=== PATIENT | female | born 1990 | race African-American/Black ===

== ENCOUNTER 2016-12-28 20:56 | Emergency (ER) | payer OTHER ==
[~2016-12-28] VITALS: Ht 167.6 cm; Wt 94.3 kg
[2016-12-28] MEDS ORDERED: IV NORMAL SALINE 1000ML BAG 1,000 ML IV ONE (21:30)
[2016-12-28] MEDS ORDERED: METOCLOPRAMIDE HCL 10 MG/2 ML VIAL. IV ONE (21:30)
[2016-12-28 21:38] LABS: BASO % 0 % (0-3); EOS % 0 % (0-3); HEMATOCRIT 31.5 % (36.0-47.0); HEMOGLOBIN 10.3 g/dL (12.0-15.5); LYMPH # 0.8 x10^3/uL (1.0-4.8); LYMPH % 8 % (24-48); MEAN CORPUSCULAR HEMOGLOBIN 26 pg (25-35); MEAN CORPUSCULAR HGB CONC 33 g/dL (31-37); MEAN CORPUSCULAR VOLUME 79 fL (79-100); MONO % 4 % (0-9); NEUT % 88 % (31-73); PLATELET COUNT 265 x10^3/uL (140-400); RED BLOOD COUNT 3.98 x10^6/uL (3.50-5.40); WHITE BLOOD COUNT 10.6 x10^3/uL (4.0-11.0)
[2016-12-28 21:40] LABS: BILIRUBIN,URINE NEGATIVE (NEG); GLUCOSE,URINE NEGATIVE (NEG); NITRITE,URINE NEGATIVE (NEG); PROTEIN,URINE NEGATIVE (NEG-TRACE); UROBILINOGEN,URINE 0.2 mg/dL (0.2 mg/dL)
[2016-12-28 21:46] LABS: CALCIUM 8.7 mg/dL (8.5-10.1); CREATININE 0.7 mg/dL (0.6-1.0); GFR 124.4; POTASSIUM 3.4 mmol/L (3.5-5.1)
[2016-12-28 21:51] LABS: ALBUMIN 3.5 g/dL (3.4-5.0); TOTAL BILIRUBIN 0.4 mg/dL (0.2-1.0); TOTAL PROTEIN 7.1 g/dL (6.4-8.2)
[2016-12-28 21:55] LABS: BACTERIA,URINE FEW /HPF (0-FEW); RBC,URINE 0 /HPF (0-2); SQUAMOUS EPITHELIAL CELL,UR FEW /LPF
[2016-12-28 22:13] LABS: PLT ESTIMATE ADEQUATE (ADEQUATE)
[2016-12-28 22:36] VITALS: BP 121/68
[2016-12-28] MEDS ORDERED: METO10TA81 PO (22:36)
--- NOTE | 2016-12-28 22:36 | PHYS DOC ---
Past Medical History Past Medical History: No Pertinent History Past Surgical History: Other Additional Past Surgical Histo: LEFT ANKLE Alcohol Use: None Drug Use: None Adult General Chief Complaint Chief Complaint: NAUSEA/VOMITING/DIARRHA HPI HPI Patient is a 26 year old female who presents with nausea & vomiting in . The patient states she is about 7 weeks by dates, has not yet established care with Dr. Rolon but has an appointment scheduled. She has had mild nausea for the past few weeks, today vomited at least 5 times & not tolerating oral intake. She denies fevers/chills, abdominal pain, hematemesis, diarrhea, constipation, dysuria/hematuria, vaginal bleeding/discharge. She was recently exposed to her nephews who had gastroenteritis. She is . Review of Systems Review of Systems Constitutional: Denies fever or chills HENT: Denies nasal congestion or sore throat Respiratory: Denies cough or shortness of breath Cardiovascular: Denies chest pain GI: Reports nausea/vomiting, denies abdominal pain, or diarrhea : Denies dysuria or hematuria Musculoskeletal: Denies back pain or joint pain Integument: Denies rash Neurologic: Denies headache Current Medications Current Medications Current Medications Medications (Trade) Dose Ordered Sig/Damir Start Time Stop Time Status Last Admin Dose Admin Metoclopramide HCl (Reglan) 10 mg 1X ONCE 12/28/16 21:30 12/28/16 21:31 DC 12/28/16 21:29 10 MG Potassium Chloride (Klor-Con) 40 meq 1X ONCE 12/28/16 22:45 12/28/16 22:46 DC 12/28/16 22:49 40 MEQ Sodium Chloride 1,000 ml @ 1,000 mls/hr 1X ONCE 12/28/16 21:30 12/28/16 22:29 DC 12/28/16 21:28 1,000 MLS/HR Allergies Allergies Allergies Coded Allergies Type Severity Reaction Last Updated Verified No Known Drug Allergies 12/28/16 No Physical Exam Physical Exam Constitutional: Well developed, well nourished, no acute distress, non-toxic appearance. HENT: Normocephalic, atraumatic, bilateral external ears normal, oropharynx moist, nose normal. Eyes: conjunctiva normal, no discharge. Neck: supple, no stridor. Cardiovascular: RRR, no murmurs, no edema. Lungs & Thorax: LCTAB, no wheezing, no respiratory distress. Abdomen: soft, nontender, nondistended. Skin: Warm, dry, no erythema, no rash. Back: No CVA tenderness. Extremities: No tenderness, no edema. Neurologic: Alert and oriented X 3 Current Patient Data Vital Signs Vital Signs Date Time Temp Pulse Resp B/P (MAP) Pulse Ox O2 Delivery O2 Flow Rate FiO2 12/28/16 22:36 74 14 121/68 (85) 99 Room Air 12/28/16 21:03 98.6 98.6 Lab Values Laboratory Tests Test 12/28/16 20:24 12/28/16 21:15 12/28/16 21:30 POC Urine HCG, Qualitative Hcg positive (Negative) Urine Collection Type Unknown Urine Color Yellow Urine Clarity Clear Urine pH 7.0 Urine Specific [place] >=1.030 Urine Protein Negative mg/dL (NEG-TRACE) Urine Glucose (UA) Negative mg/dL (NEG) Urine Ketones (Stick) 40 mg/dL (NEG) Urine Blood Negative (NEG) Urine Nitrite Negative (NEG) Urine Bilirubin Negative (NEG) Urine Urobilinogen Dipstick 0.2 mg/dL (0.2 mg/dL) Urine Leukocyte Esterase Negative (NEG) Urine RBC 0 /HPF (0-2) Urine WBC 1-4 /HPF (0-4) Urine Squamous Epithelial Cells Few /LPF Urine Bacteria Few /HPF (0-FEW) Urine Mucus Mod /LPF White Blood Count 10.6 x10^3/uL (4.0-11.0) Red Blood Count 3.98 x10^6/uL (3.50-5.40) Hemoglobin 10.3 g/dL (12.0-15.5) L Hematocrit 31.5 % (36.0-47.0) L Mean Corpuscular Volume 79 fL (79-100) Mean Corpuscular Hemoglobin 26 pg (25-35) Mean Corpuscular Hemoglobin Concent 33 g/dL (31-37) Red Cell Distribution Width 17.0 % (11.5-14.5) H Platelet Count 265 x10^3/uL (140-400) Neutrophils (%) (Auto) 88 % (31-73) H Lymphocytes (%) (Auto) 8 % (24-48) L Monocytes (%) (Auto) 4 % (0-9) Eosinophils (%) (Auto) 0 % (0-3) Basophils (%) (Auto) 0 % (0-3) Neutrophils # (Auto) 9.3 x10^3uL (1.8-7.7) H Lymphocytes # (Auto) 0.8 x10^3/uL (1.0-4.8) L Monocytes # (Auto) 0.4 x10^3/uL (0.0-1.1) Eosinophils # (Auto) 0.0 x10^3/uL (0.0-0.7) Basophils # (Auto) 0.0 x10^3/uL (0.0-0.2) Segmented Neutrophils % 86 % (35-66) H Lymphocytes % 11 % (24-48) L Monocytes % 3 % (0-10) Platelet Estimate Adequate (ADEQUATE) Sodium Level 138 mmol/L (136-145) Potassium Level 3.4 mmol/L (3.5-5.1) L Chloride Level 102 mmol/L (98-107) Carbon Dioxide Level 24 mmol/L (21-32) Anion Gap 12 (6-14) Blood Urea Nitrogen 7 mg/dL (7-20) Creatinine 0.7 mg/dL (0.6-1.0) Estimated GFR (Cockcroft-Gault) 124.4 BUN/Creatinine Ratio 10 (6-20) Glucose Level 86 mg/dL (70-99) Calcium Level 8.7 mg/dL (8.5-10.1) Total Bilirubin 0.4 mg/dL (0.2-1.0) Aspartate Amino Transferase (AST) 18 U/L (15-37) Alanine Aminotransferase (ALT) 14 U/L (14-59) Alkaline Phosphatase 73 U/L (46-116) Total Protein 7.1 g/dL (6.4-8.2) Albumin 3.5 g/dL (3.4-5.0) Albumin/Globulin Ratio 1.0 (1.0-1.7) Laboratory Tests 12/28/16 21:30 Laboratory Tests 12/28/16 21:30 EKG EKG [] Radiology/Procedures Radiology/Procedures [] Course & Med Decision Making Course & Med Decision Making Pertinent Labs and Imaging studies reviewed. (See chart for details) The patient presents with nausea & vomiting in . The sudden onset of so many episodes of vomiting suggests acute viral illness rather than - related symptoms, so may resolve within a few days. Gave IV fluids, reglan. Labs as above. She felt better after treatment & was able to tolerate oral intake, requested discharge home. Recommend rest, hydration with small sips of clear liquids, if symptoms persist would try eating frequent small snacks, gave reglan to take as needed for nausea. Follow up with Dr. Rolon in 2-3 days. Come back for high fever, severe pain, uncontrolled vomiting, any otherwise worsening condition. Discharged home in stable & improved condition. [] Dragon Disclaimer Dragon Disclaimer This electronic medical record was generated, in whole or in part, using a voice recognition dictation system. Departure Departure Impression: Primary Impression: Nausea/vomiting in Disposition: 01 HOME, SELF-CARE Condition: IMPROVED Referrals: GERARDO MARTINEZ MD (PCP) ETHAN ROLON MD Patient Instructions: Nausea and Vomiting, [id number] Additional Instructions: You were seen in the emergency department today for nausea and vomiting in early . As we discussed, this could be related related to the itself or you may have a viral illness. Please rest, drink fluids including small sips of clear liquids, try to eat small snacks throughout the day. Use Reglan as needed for nausea and vomiting. Follow-up with Dr. Rolon in 2 -3 days if not improving. Return to the emergency department for high fever, severe pain, uncontrolled vomiting, heavy vaginal bleeding requiring use of greater than 1 pad per hour, any otherwise worsening condition. Scripts Metoclopramide Hcl (REGLAN) 10 Mg Tablet 1 TAB PO TID Y for NAUSEA/VOMITING, #10 TAB Prov: DEL MIGUEL MD 12/28/16 DEL MIGUEL MD Dec 28, 2016 22:36
[2016-12-28] MEDS ORDERED: POTASSIUM CHLORIDE 20 MEQ TABLET.ER. PO ONE (22:45)
== END 2016-12-28 22:55 | disposition home or self-care (01) ==
LOC: ER 20:56
DX: O21.9 Vomiting of pregnancy, unspecified (principal); O26.891 Other specified pregnancy related conditions, first trimester; R11.0 Nausea; Z3A.01 Less than 8 weeks gestation of pregnancy
CPT/HCPCS: 36415; 80053; 81001; 81025; 85007; 85025; 96361; 96374; 99284; J2765; J7030

== ENCOUNTER → 2017-01-12 | Outpatient (CLI) | payer OTHER ==
[2016-12-28 22:36] VITALS: BP 121/68
[~2017-01-12] MED LIST: METO10TA81 PO
--- NOTE | 2017-01-12 16:17 | KCIC ---
Examination: Obstetric ultrasound less than 14 weeks HISTORY: History of fall confirmation of , dates COMPARISON: None available FINDINGS: The uterus measures 10.2 x 6.8 x 6.2 cm Single living intrauterine identified with heart rate of 182 bpm. Gestational sac is identified. Yolk sac identified measuring 3.1 mm. The crown-rump length measures 1.94 cm corresponding to 8 weeks and 3 days +/- 5 days. LMP 11/15/2016 Clinical age is 8 weeks and 2 days with estimated delivery by LMP 08/22/2017. IMPRESSION: Single living intrauterine with heart rate of 182 bpm. Estimated gestational age corresponds to 8 weeks and 3 days with expected date of delivery by this ultrasound 08/21/2017. Electronically signed by: Ishmael Carrillo MD (01/12/2017 4:13 PM) [id number]
== END | disposition home or self-care (01) ==
LOC: KCIC US 15:35
PROVIDERS: ATTEND Family Medicine
DX: Z34.81 Encounter for supervision of other normal pregnancy, first trimester (principal); Z3A.08 8 weeks gestation of pregnancy
CPT/HCPCS: 76801

== ENCOUNTER → 2017-05-11 | Outpatient (CLI) | payer OTHER ==
[2017-03-14 23:53] VITALS: BP 100/50
--- NOTE | 2017-05-11 10:06 | KCIC ---
OB ULTRASOUND, > 14 WEEKS Clinical Indication: Large for dates. Comparison: Obstetric ultrasound, March 19, 2017. Technique: Multiple grayscale images, color Doppler, and M-mode images of the uterus are obtained. Findings: There is a single intrauterine gestation in cephalic presentation. The placenta is posterior in location without evidence of placenta previa. The amount of amniotic fluid appears appropriate. Amniotic fluid index is 11.1 cm. Cervical length is approximately 4.9 cm. Biometrical data: BPD = 6.5 cm for 26 weeks 2 days. HC = 23.9 cm for 25 weeks 6 days. AC = 20.7 cm for 25 weeks 2 days. FL = 4.8 cm for 26 weeks 1 days. HC/AC ratio = 1.15. Overall, the estimated sonographic gestational age is 25 weeks and 6 days for an estimated date of delivery of August 18, 2017. The estimated date of delivery provided by the last ultrasound is 08/20/2017. Estimated weight is 842 +/- 125 grams. The estimated heart rate is 139 beats per minute. A complete anatomic survey it is not performed on today's scan. IMPRESSION: 1. Single live intrauterine gestation with estimated sonographic gestational age of 25 weeks and 6 days. 2. Appropriate interval growth. Electronically signed by: Yannick Ontiveros MD (05/11/2017 10:03 AM) [id number]
== END | disposition home or self-care (01) ==
LOC: KCIC US 08:54
PROVIDERS: ATTEND Family Medicine
DX: Z36.89 Encounter for other specified antenatal screening (principal); O36.62X0 Maternal care for excessive fetal growth, second trimester, not applicable or unspecified; Z3A.25 25 weeks gestation of pregnancy
CPT/HCPCS: 76805

== ENCOUNTER → 2017-07-02 | Outpatient (CLI) | payer OTHER | END | disposition home or self-care (01) | LOC: KCIC US 15:15 | DX: O36.63X0 Maternal care for excessive fetal growth, third trimester, not applicable or unspecified (principal); Z3A.33 33 weeks gestation of pregnancy | CPT/HCPCS: 76805 ==

== ENCOUNTER 2017-08-17 06:21 | Inpatient (IN) | payer OTHER ==
[2017-08-17] MEDS ORDERED: ACETAMINOPHEN 325 MG TABLET. PO (07:15)
[2017-08-17] MEDS ORDERED: MAG HYDROX/ALUMINUM HYD/SIMETH 30 ML ORAL.SUSP PO (07:15)
[2017-08-17] MEDS ORDERED: TERBUTALINE 1 MG/ML VIAL. SQ (07:15)
[2017-08-17] MEDS ORDERED: BUTORPHANOL 2 MG/ML VIAL. IV (07:15)
[2017-08-17] MEDS ORDERED: fentaNYL PF VIAL 100 MCG/2 ML VIAL IV (07:15)
[2017-08-17] MEDS ORDERED: ONDANSETRON PF 4 MG/2 ML VIAL. IV (07:15)
[2017-08-17] MEDS ORDERED: 0.9 % SODIUM CHLORIDE 10 ML DISP.SYRIN. IV (07:15)
[2017-08-17] MEDS ORDERED: OXYTOCIN 30 UNIT/500 ML PREMIX 500 ML IV (07:15)
[2017-08-17] MEDS ORDERED: OXYTOCIN PREMIX 30 UNIT/500 ML BAG. IV (07:30)
[2017-08-17 08:33] LABS: BASO % 0 % (0-3); EOS % 0 % (0-3); HEMATOCRIT 34.6 % (36.0-47.0); HEMOGLOBIN 11.6 g/dL (12.0-15.5); LYMPH # 0.7 x10^3/uL (1.0-4.8); LYMPH % 7 % (24-48); MEAN CORPUSCULAR HEMOGLOBIN 30 pg (25-35); MEAN CORPUSCULAR HGB CONC 33 g/dL (31-37); MEAN CORPUSCULAR VOLUME 91 fL (79-100); MONO # 0.3 x10^3/uL (0.0-1.1); MONO % 3 % (0-9); NEUT # 9.1 x10^3uL (1.8-7.7); NEUT % 90 % (31-73); PLATELET COUNT 223 x10^3/uL (140-400); RED BLOOD COUNT 3.81 x10^6/uL (3.50-5.40); RED CELL DISTRIBUTION WIDTH 13.7 % (11.5-14.5); WHITE BLOOD COUNT 10.2 x10^3/uL (4.0-11.0)
[2017-08-17 08:36] LABS: ADD MAN DIFF? YES
[2017-08-17] MEDS: OXYTOCIN 30 UNIT/500 ML PREMIX 500 ML IV (10:16)
[2017-08-17] MEDS: IV RINGERS,LACTATED 1000ML 1,000 ML IV (10:16)
[2017-08-17 11:27] LABS: % BANDS 1 % (0-9); % EOS 2 % (0-5); % LYMPHS 5 % (24-48); % MONOS 1 % (0-10); % SEGS 91 % (35-66); PLT ESTIMATE ADEQUATE (ADEQUATE)
[2017-08-17] MEDS ORDERED: L&D EPIDURAL SYRINGE 50 ML EP ×2 (12:20→15:53)
[2017-08-17] MEDS ORDERED: ROPIVacaine 0.2% PF 10 ML VIAL. ×2 (12:20→12:30)
[2017-08-17] MEDS ORDERED: IV RINGERS,LACTATED 1000ML 1,000 ML IV ×2 (12:22→15:55)
[2017-08-17] MEDS ORDERED: NALOXONE 0.4 MG/ML VIAL. IV ×2 (12:30→16:00)
[2017-08-17] MEDS ORDERED: ROPIVacaine 0.2% IN 0.9%NACL PF 40 MG/20 ML DISP.SYRIN. EPI (16:00)
[2017-08-17] MEDS ORDERED: fentaNYL PF VIAL 100 MCG/2 ML VIAL EPI (16:00)
[2017-08-17] MEDS ORDERED: BUPIVACAINE MPF 0.25% 10 ML VIAL. EPI (16:00)
[2017-08-17] MEDS: L&D EPIDURAL SYRINGE 50 ML EP ×2 (16:54)
[2017-08-17] MEDS: LIDOCAINE 1% PF 30 ML VIAL. INJ (18:22)
[2017-08-17] MEDS: IBUPROFEN 800 MG TABLET. PO (20:18)
[2017-08-17] MEDS ORDERED: BENZOCAINE 20% TOPICAL AEROSOL SPRAY 57GM CAN. TP (21:00)
[2017-08-18] MEDS: IBUPROFEN 800 MG TABLET. PO ×2 (04:18→15:05)
[2017-08-18 06:16] LABS: RPR Non Reactive (Non Reactive)
[2017-08-18] MEDS ORDERED: HYDROcodone/APAP 5/325MG 1 TAB TABLET PO ×2 (15:00)
[2017-08-18 16:02] LABS: HEMATOCRIT 32.8 % (36.0-47.0); HEMOGLOBIN 10.8 g/dL (12.0-15.5); MEAN CORPUSCULAR HEMOGLOBIN 30 pg (25-35); MEAN CORPUSCULAR HGB CONC 33 g/dL (31-37); MEAN CORPUSCULAR VOLUME 91 fL (79-100); PLATELET COUNT 213 x10^3/uL (140-400); RED BLOOD COUNT 3.59 x10^6/uL (3.50-5.40); RED CELL DISTRIBUTION WIDTH 14.1 % (11.5-14.5); WHITE BLOOD COUNT 11.7 x10^3/uL (4.0-11.0)
== END 2017-08-19 13:40 | disposition home or self-care (01) | DRG 775 ==
LOC: 3 SO LND 06:21 → 3 NORTH 20:26
PROC: 10E0XZZ Delivery of Products of Conception, External Approach (ICD-10-PCS; principal; 2017-08-17)
PROC: 10907ZC Drainage of Amniotic Fluid, Therapeutic from Products of Conception, Via Natural or Artificial Opening (ICD-10-PCS; 2017-08-17)
PROC: 3E0R3BZ Introduction of Anesthetic Agent into Spinal Canal, Percutaneous Approach (ICD-10-PCS; 2017-08-17)
PROC: 00HU33Z Insertion of Infusion Device into Spinal Canal, Percutaneous Approach (ICD-10-PCS; 2017-08-17)
PROC: 0U7C0ZZ Dilation of Cervix, Open Approach (ICD-10-PCS; 2017-08-17)
PROC: 0UQMXZZ Repair Vulva, External Approach (ICD-10-PCS; 2017-08-17)
DX: O69.81X0 Labor and delivery complicated by cord around neck, without compression, not applicable or unspecified (principal); O70.1 Second degree perineal laceration during delivery; Z37.0 Single live birth; O99.02 Anemia complicating childbirth; Z3A.40 40 weeks gestation of pregnancy
CPT/HCPCS: 36415; 85007; 85025; 85027; 86593; 86850; 86900; 86901; J2590; J2795; J7120

== ENCOUNTER 2017-08-23 21:59 | Inpatient (IN) | payer OTHER ==
[2017-08-23 22:39] LABS: ADD MAN DIFF? NO
[2017-08-23 22:41] LABS: BASO % 1 % (0-3); EOS # 0.4 x10^3/uL (0.0-0.7); EOS % 5 % (0-3); HEMATOCRIT 37.4 % (36.0-47.0); HEMOGLOBIN 12.6 g/dL (12.0-15.5); LYMPH # 1.4 x10^3/uL (1.0-4.8); LYMPH % 18 % (24-48); MEAN CORPUSCULAR HEMOGLOBIN 30 pg (25-35); MEAN CORPUSCULAR HGB CONC 34 g/dL (31-37); MEAN CORPUSCULAR VOLUME 90 fL (79-100); MONO # 0.4 x10^3/uL (0.0-1.1); MONO % 5 % (0-9); NEUT # 5.8 x10^3uL (1.8-7.7); NEUT % 72 % (31-73); PLATELET COUNT 278 x10^3/uL (140-400); RED BLOOD COUNT 4.15 x10^6/uL (3.50-5.40); RED CELL DISTRIBUTION WIDTH 13.5 % (11.5-14.5)
[2017-08-23 22:52] LABS: ANION GAP 6 (6-14); BLOOD UREA NITROGEN 12 mg/dL (7-20); BUN/CREATININE RATIO 13 (6-20); CARBON DIOXIDE 25 mmol/L (21-32); CHLORIDE 107 mmol/L (98-107); CREATININE 0.9 mg/dL (0.6-1.0); GFR 93.1; GLUCOSE 88 mg/dL (70-99); POTASSIUM 3.8 mmol/L (3.5-5.1); SODIUM 138 mmol/L (136-145)
[2017-08-23 23:00] LABS: ALBUMIN 2.9 g/dL (3.4-5.0); ALBUMIN/GLOBULIN RATIO 0.7 (1.0-1.7); ALK PHOS 178 U/L (46-116); ALT (SGPT) 28 U/L (14-59); AST (SGOT) 21 U/L (15-37); TOTAL BILIRUBIN 0.4 mg/dL (0.2-1.0); TOTAL PROTEIN 6.8 g/dL (6.4-8.2)
[2017-08-23 23:00] LABS: TROPONINI < 0.017 ng/mL (0.000-0.055)
[2017-08-23 23:53] LABS: BILIRUBIN,URINE NEGATIVE (NEG); CLARITY,URINE CLEAR; COLOR,URINE YELLOW; GLUCOSE,URINE NEGATIVE (NEG); NITRITE,URINE NEGATIVE (NEG); PH,URINE 6.5; PROTEIN,URINE NEGATIVE (NEG-TRACE)
[2017-08-24 00:04] LABS: BACTERIA,URINE MOD /HPF (0-FEW); RBC,URINE TNTC /HPF (0-2); SQUAMOUS EPITHELIAL CELL,UR FEW /LPF; WBC,URINE >40 /HPF (0-4)
[2017-08-24] MEDS ORDERED: cloNIDine HCL 0.1 MG TABLET PO (02:45)
[2017-08-24] MEDS ORDERED: MAGNESIUM CITRATE 296 ML SOLUTION. PO (02:45)
[2017-08-24] MEDS: ACETAMINOPHEN 500 MG TABLET PO ×3 (03:00→19:07)
[2017-08-24] MEDS: amLODIPine BESYLATE 5 MG TABLET PO (03:00)
[2017-08-24] MEDS: LABETALOL 20 MG/4 ML DISP.SYRIN. IVP (04:50)
[2017-08-24 06:06] LABS: ADD MAN DIFF? NO
[2017-08-24 06:14] LABS: BASO % 0 % (0-3); EOS # 0.3 x10^3/uL (0.0-0.7); EOS % 3 % (0-3); HEMATOCRIT 38.5 % (36.0-47.0); LYMPH # 0.9 x10^3/uL (1.0-4.8); LYMPH % 10 % (24-48); MEAN CORPUSCULAR HEMOGLOBIN 31 pg (25-35); MEAN CORPUSCULAR HGB CONC 34 g/dL (31-37); MEAN CORPUSCULAR VOLUME 90 fL (79-100); MONO # 0.4 x10^3/uL (0.0-1.1); MONO % 4 % (0-9); NEUT # 7.3 x10^3uL (1.8-7.7); NEUT % 83 % (31-73); PLATELET COUNT 262 x10^3/uL (140-400); RED BLOOD COUNT 4.26 x10^6/uL (3.50-5.40); RED CELL DISTRIBUTION WIDTH 13.5 % (11.5-14.5); WHITE BLOOD COUNT 8.8 x10^3/uL (4.0-11.0)
[2017-08-24 06:37] LABS: ALBUMIN/GLOBULIN RATIO 0.8 (1.0-1.7); ALK PHOS 179 U/L (46-116); ALT (SGPT) 27 U/L (14-59); ANION GAP 12 (6-14); AST (SGOT) 18 U/L (15-37); BLOOD UREA NITROGEN 11 mg/dL (7-20); BUN/CREATININE RATIO 12 (6-20); CARBON DIOXIDE 23 mmol/L (21-32); CHLORIDE 106 mmol/L (98-107); CREATININE 0.9 mg/dL (0.6-1.0); GFR 93.1; GLUCOSE 91 mg/dL (70-99); POTASSIUM 3.6 mmol/L (3.5-5.1); SODIUM 141 mmol/L (136-145); TOTAL BILIRUBIN 0.5 mg/dL (0.2-1.0); TOTAL PROTEIN 6.9 g/dL (6.4-8.2)
[2017-08-24] MEDS: BISACODYL 10 MG SUPP.RECT. PR (07:40)
[2017-08-24] MEDS ORDERED: IOHEXOL 300 MG/ML 100ML VIAL. IV (11:30)
[2017-08-24] MEDS ORDERED: CONTRAST GIVEN MC (11:45)
[2017-08-24] MEDS: MAGNESIUM SULFATE 4GM 100 ML IV (13:05)
[2017-08-24] MEDS: MAGNESIUM SULFATE 20GM 500 ML IV (14:10)
[2017-08-24] MEDS: IV RINGERS,LACTATED 1000ML 1,000 ML IV (17:07)
[2017-08-25] MEDS: MAGNESIUM SULFATE 20GM 500 ML IV (00:20)
[2017-08-25] MEDS: ACETAMINOPHEN 500 MG TABLET PO ×2 (00:21→06:06)
[2017-08-25] MEDS: IV RINGERS,LACTATED 1000ML 1,000 ML IV (08:16)
[2017-08-25] MEDS: amLODIPine BESYLATE 5 MG TABLET PO (09:07)
== END 2017-08-25 14:00 | disposition home or self-care (01) | DRG 776 ==
LOC: 3 SO LND 08-24 00:08 → ER 21:59
DX: O14.95 Unspecified pre-eclampsia, complicating the puerperium (principal); G43.909 Migraine, unspecified, not intractable, without status migrainosus; O90.89 Other complications of the puerperium, not elsewhere classified; Z88.1 Allergy status to other antibiotic agents; O92.79 Other disorders of lactation
CPT/HCPCS: 36415; 71045; 71275; 80053; 81001; 84484; 85025; 93005; 99285-25; J3475; J3490; J7120

== ENCOUNTER 2018-04-30 05:41 | Emergency (ER) | payer OTHER ==
[~2018-04-30] VITALS: Ht 167.6 cm; Wt 99.8 kg
[~2018-04-30 05:41] MED LIST changes: +AMLO5TAB7 PO; +HYDR-2761 PO; +IBUP800T19 PO
[2018-04-30 05:45] VITALS: BP 120/75
[2018-04-30 06:19] LABS: CREATININE 0.8 mg/dL (0.6-1.0); GFR 105.8; POTASSIUM 3.6 mmol/L (3.5-5.1)
[2018-04-30 06:24] LABS: ALBUMIN 3.8 g/dL (3.4-5.0); DIRECT BILIRUBIN 0.2 mg/dL (0.0-0.2); TOTAL BILIRUBIN 0.4 mg/dL (0.2-1.0); TOTAL PROTEIN 7.8 g/dL (6.4-8.2)
[2018-04-30 06:47] LABS: BILIRUBIN,URINE NEGATIVE (NEG); CLARITY,URINE CLEAR; COLOR,URINE YELLOW; NITRITE,URINE NEGATIVE (NEG); PROTEIN,URINE NEGATIVE (NEG-TRACE); UROBILINOGEN,URINE 0.2 mg/dL (0.2 mg/dL)
[2018-04-30 06:53] LABS: BASO % 0 % (0-3); EOS # 0.1 x10^3/uL (0.0-0.7); EOS % 1 % (0-3); HEMATOCRIT 37.4 % (36.0-47.0); LYMPH # 1.2 x10^3/uL (1.0-4.8); LYMPH % 12 % (24-48); MEAN CORPUSCULAR HEMOGLOBIN 31 pg (25-35); MEAN CORPUSCULAR HGB CONC 35 g/dL (31-37); MEAN CORPUSCULAR VOLUME 88 fL (79-100); MONO # 0.6 x10^3/uL (0.0-1.1); MONO % 6 % (0-9); NEUT # 8.3 x10^3uL (1.8-7.7); NEUT % 81 % (31-73); PLATELET COUNT 320 x10^3/uL (140-400); RED BLOOD COUNT 4.26 x10^6/uL (3.50-5.40); RED CELL DISTRIBUTION WIDTH 12.8 % (11.5-14.5); WHITE BLOOD COUNT 10.2 x10^3/uL (4.0-11.0)
[2018-04-30 07:02] LABS: BACTERIA,URINE 0 /HPF (0-FEW); RBC,URINE 0 /HPF (0-2); WBC,URINE 0 /HPF (0-4)
--- NOTE | 2018-04-30 07:21 | PHYS DOC ---
Past Medical History Past Medical History: Migraines Past Surgical History: Other Additional Past Surgical Histo: LEFT ANKLE Alcohol Use: None Drug Use: None Adult General Chief Complaint Chief Complaint: ABDOMINAL PAIN HPI HPI Patient is a 27 year old female presenting with abdominal pain epigastric. She was having severe pain actually at home for about 2 hours and then I saw her approximately 30 minutes into her ER visit. When I walked into the room she had just returned from the bathroom she had had a bowel movement and vomited once and her pain went away completely. She is actually eager to be going home at this time. Review of Systems Review of Systems Constitutional: Denies fever or chills [] Eyes: Denies change in visual acuity, redness, or eye pain [] HENT: Denies nasal congestion or sore throat [] Respiratory: Denies cough or shortness of breath [] Cardiovascular: No additional information not addressed in HPI [] GI: Musculoskeletal: Denies back pain or joint pain [] Integument: Denies rash or skin lesions [] Neurologic: Denies headache, focal weakness or sensory changes [] Endocrine: Denies polyuria or polydipsia [] All other systems were reviewed and found to be within normal limits, except as documented in this note. Allergies Allergies Allergies Coded Allergies Type Severity Reaction Last Updated Verified amoxicillin Allergy Intermediate Rash 08/17/17 Yes Physical Exam Physical Exam Constitutional: Well developed, well nourished, no acute distress, non-toxic appearance. [] HENT: Normocephalic, atraumatic, bilateral external ears normal, oropharynx moist, no oral exudates, nose normal. [] Eyes: PERRLA, EOMI, conjunctiva normal, no discharge. [] Neck: Normal range of motion, no tenderness, supple, no stridor. [] Pulmonary: Normal respiratory effort no increased work of breathing no obvious chest wall trauma Abdomen: Bowel sounds normal, soft, no tenderness, no masses, no pulsatile masses. [] Skin: Warm, dry, no erythema, no rash. [] Back: No tenderness, no CVA tenderness. [] Extremities: No tenderness, no cyanosis, no clubbing, ROM intact, no edema. [] Neurologic: Alert and oriented X 3, normal motor function, normal sensory function, no focal deficits noted. [] Psychologic: Affect normal, judgement normal, mood normal. [] Current Patient Data Vital Signs Vital Signs Date Time Temp Pulse Resp B/P (MAP) Pulse Ox O2 Delivery O2 Flow Rate FiO2 04/30/18 05:45 97.6 78 20 120/75 (90) 100 Room Air 97.6 Lab Values Laboratory Tests Test 04/30/18 05:45 04/30/18 05:54 04/30/18 06:00 Urine Collection Type Unknown Urine Color Yellow Urine Clarity Clear Urine pH 7.0 Urine Specific [place] >=1.030 Urine Protein Negative mg/dL (NEG-TRACE) Urine Glucose (UA) Negative mg/dL (NEG) Urine Ketones (Stick) Negative mg/dL (NEG) Urine Blood Negative (NEG) Urine Nitrite Negative (NEG) Urine Bilirubin Negative (NEG) Urine Urobilinogen Dipstick 0.2 mg/dL (0.2 mg/dL) Urine Leukocyte Esterase Negative (NEG) Urine RBC 0 /HPF (0-2) Urine WBC 0 /HPF (0-4) Urine Bacteria 0 /HPF (0-FEW) Urine Mucus Marked /LPF POC Urine HCG, Qualitative Hcg negative (Negative) White Blood Count 10.2 x10^3/uL (4.0-11.0) Red Blood Count 4.26 x10^6/uL (3.50-5.40) Hemoglobin 13.0 g/dL (12.0-15.5) Hematocrit 37.4 % (36.0-47.0) Mean Corpuscular Volume 88 fL (79-100) Mean Corpuscular Hemoglobin 31 pg (25-35) Mean Corpuscular Hemoglobin Concent 35 g/dL (31-37) Red Cell Distribution Width 12.8 % (11.5-14.5) Platelet Count 320 x10^3/uL (140-400) Neutrophils (%) (Auto) 81 % (31-73) H Lymphocytes (%) (Auto) 12 % (24-48) L Monocytes (%) (Auto) 6 % (0-9) Eosinophils (%) (Auto) 1 % (0-3) Basophils (%) (Auto) 0 % (0-3) Neutrophils # (Auto) 8.3 x10^3uL (1.8-7.7) H Lymphocytes # (Auto) 1.2 x10^3/uL (1.0-4.8) Monocytes # (Auto) 0.6 x10^3/uL (0.0-1.1) Eosinophils # (Auto) 0.1 x10^3/uL (0.0-0.7) Basophils # (Auto) 0.0 x10^3/uL (0.0-0.2) Sodium Level 138 mmol/L (136-145) Potassium Level 3.6 mmol/L (3.5-5.1) Chloride Level 102 mmol/L (98-107) Carbon Dioxide Level 29 mmol/L (21-32) Anion Gap 7 (6-14) Blood Urea Nitrogen 13 mg/dL (7-20) Creatinine 0.8 mg/dL (0.6-1.0) Estimated GFR (Cockcroft-Gault) 105.8 Glucose Level 94 mg/dL (70-99) Calcium Level 9.0 mg/dL (8.5-10.1) Total Bilirubin 0.4 mg/dL (0.2-1.0) Direct Bilirubin 0.2 mg/dL (0.0-0.2) Aspartate Amino Transferase (AST) 69 U/L (15-37) H Alanine Aminotransferase (ALT) 48 U/L (14-59) Alkaline Phosphatase 100 U/L (46-116) Total Protein 7.8 g/dL (6.4-8.2) Albumin 3.8 g/dL (3.4-5.0) Lipase 181 U/L (73-393) Laboratory Tests 04/30/18 06:00 Laboratory Tests 04/30/18 06:00 EKG EKG [] Radiology/Procedures Radiology/Procedures [] Course & Med Decision Making Course & Med Decision Making Pertinent Labs and Imaging studies reviewed. (See chart for details) Epigastric abdominal pain resolved encouraged to come back for any recurrent pain. Dragon Disclaimer Dragon Disclaimer This electronic medical record was generated, in whole or in part, using a voice recognition dictation system. Departure Departure Impression: Primary Impression: Abdominal pain Disposition: HOME, SELF-CARE Condition: STABLE Patient Instructions: Abdominal Pain (Nonspecific) JUHI BOWIE MD Apr 30, 2018 07:21
== END 2018-04-30 07:05 | disposition home or self-care (01) ==
LOC: ER 05:41
DX: R10.13 Epigastric pain (principal); R11.10 Vomiting, unspecified; G43.909 Migraine, unspecified, not intractable, without status migrainosus; Z88.1 Allergy status to other antibiotic agents
CPT/HCPCS: 36415; 80048; 80076; 81001; 81025; 83690; 85025; 99284

== ENCOUNTER 2018-07-29 11:55 | Inpatient (IN) | payer OTHER, BC ==
[~2018-07-29] VITALS: Ht 172.7 cm; Wt 99.8 kg
[~2018-07-29 11:55] MED LIST changes: +AMLO5TAB10 PO; -AMLO5TAB7 PO
--- NOTE | 2018-07-29 12:41 | PHYS DOC ---
Past Medical History Past Medical History: No Pertinent History, Migraines Past Surgical History: Other Additional Past Surgical Histo: LEFT ANKLE Alcohol Use: None Drug Use: None Adult General Chief Complaint Chief Complaint: ABDOMINAL PAIN HPI HPI Patient is a 27 year old f p/w abdo pain ruq and epigastric burning and cramping nonradiating worse after donut and wosre with lying flat. no fever no vomiting has had this pain before normally gets better with bm but has not had that yet today Review of Systems Review of Systems Constitutional: Denies fever or chills [] Respiratory: Denies cough or shortness of breath [] ] : Denies dysuria or hematuria [] Musculoskeletal: Denies back pain or joint pain [] Integument: Denies rash or skin lesions [] Neurologic: Denies headache, focal weakness or sensory changes [] Endocrine: Denies polyuria or polydipsia [] All other systems were reviewed and found to be within normal limits, except as documented in this note. Current Medications Current Medications Current Medications Medications (Trade) Dose Ordered Sig/Damir Start Time Stop Time Status Last Admin Dose Admin Acetaminophen/ Hydrocodone Bitart (Lortab 5/325) 1 tab 1X ONCE 07/29/18 12:45 07/29/18 13:33 DC Ciprofloxacin/ Dextrose 200 ml @ 200 mls/hr 1X ONCE 07/29/18 13:45 07/29/18 14:44 Fentanyl Citrate (Fentanyl 2ml Vial) 50 mcg 1X ONCE 07/29/18 13:45 07/29/18 13:46 DC Metronidazole 100 ml @ 100 mls/hr 1X ONCE 07/29/18 13:45 07/29/18 14:44 Multi-Ingredient Mouthwash/Gargle (Gi Cocktail) 20 ml 1X ONCE 07/29/18 12:45 07/29/18 13:33 DC Ondansetron HCl (Zofran Odt) 4 mg 1X ONCE 07/29/18 12:45 07/29/18 13:33 DC Ondansetron HCl (Zofran) 4 mg 1X ONCE 07/29/18 13:45 07/29/18 13:46 DC Sodium Chloride 1,000 ml @ 1,000 mls/hr 1X ONCE 07/29/18 13:45 07/29/18 14:44 Allergies Allergies Allergies Coded Allergies Type Severity Reaction Last Updated Verified amoxicillin Allergy Intermediate Rash 08/17/17 Yes Physical Exam Physical Exam Constitutional: Well developed, well nourished, no acute distress, non-toxic appearance. [] HENT: Normocephalic, atraumatic, bilateral external ears normal, oropharynx moist, no oral exudates, nose normal. [] Eyes: PERRLA, EOMI, conjunctiva normal, no discharge. [] Neck: Normal range of motion, no tenderness, supple, no stridor. [] Pulmonary: Normal respiratory effort no increased work of breathing no obvious chest wall trauma Abdomen: Bowel sounds normal, soft, mild ttp noted epigatric and ruq area Extremities: No tenderness, no cyanosis, no clubbing, ROM intact, no edema. [] Neurologic: Alert and oriented X 3, normal motor function, normal sensory function, no focal deficits noted. [] Psychologic: Affect normal, judgement normal, mood normal. [] Current Patient Data Vital Signs Vital Signs Date Time Temp Pulse Resp B/P (MAP) Pulse Ox O2 Delivery O2 Flow Rate FiO2 07/29/18 13:01 72 16 119/67 (84) 96 Room Air 07/29/18 12:15 97.4 97.4 Lab Values Laboratory Tests Test 07/29/18 12:00 07/29/18 12:07 07/29/18 12:50 Urine Collection Type Unknown Urine Color Yellow Urine Clarity Clear Urine pH 6.5 Urine Specific [place] 1.020 Urine Protein Negative mg/dL (NEG-TRACE) Urine Glucose (UA) Negative mg/dL (NEG) Urine Ketones (Stick) Negative mg/dL (NEG) Urine Blood Negative (NEG) Urine Nitrite Negative (NEG) Urine Bilirubin Negative (NEG) Urine Urobilinogen Dipstick 0.2 mg/dL (0.2 mg/dL) Urine Leukocyte Esterase Trace (NEG) Urine RBC 0 /HPF (0-2) Urine WBC Occ /HPF (0-4) Urine Squamous Epithelial Cells Many /LPF Urine Bacteria Few /HPF (0-FEW) POC Urine HCG, Qualitative Hcg negative (Negative) White Blood Count 12.9 x10^3/uL (4.0-11.0) H Red Blood Count 4.48 x10^6/uL (3.50-5.40) Hemoglobin 12.6 g/dL (12.0-15.5) Hematocrit 39.3 % (36.0-47.0) Mean Corpuscular Volume 88 fL (79-100) Mean Corpuscular Hemoglobin 28 pg (25-35) Mean Corpuscular Hemoglobin Concent 32 g/dL (31-37) Red Cell Distribution Width 13.2 % (11.5-14.5) Platelet Count 281 x10^3/uL (140-400) Neutrophils (%) (Auto) 89 % (31-73) H Lymphocytes (%) (Auto) 7 % (24-48) L Monocytes (%) (Auto) 4 % (0-9) Eosinophils (%) (Auto) 0 % (0-3) Basophils (%) (Auto) 0 % (0-3) Neutrophils # (Auto) 11.5 x10^3uL (1.8-7.7) H Lymphocytes # (Auto) 0.9 x10^3/uL (1.0-4.8) L Monocytes # (Auto) 0.6 x10^3/uL (0.0-1.1) Eosinophils # (Auto) 0.0 x10^3/uL (0.0-0.7) Basophils # (Auto) 0.0 x10^3/uL (0.0-0.2) Platelet Estimate Pending Sodium Level 141 mmol/L (136-145) Potassium Level 3.9 mmol/L (3.5-5.1) Chloride Level 104 mmol/L (98-107) Carbon Dioxide Level 25 mmol/L (21-32) Anion Gap 12 (6-14) Blood Urea Nitrogen 8 mg/dL (7-20) Creatinine 0.8 mg/dL (0.6-1.0) Estimated GFR (Cockcroft-Gault) 105.8 BUN/Creatinine Ratio 10 (6-20) Glucose Level 87 mg/dL (70-99) Calcium Level 8.8 mg/dL (8.5-10.1) Total Bilirubin 0.6 mg/dL (0.2-1.0) Aspartate Amino Transferase (AST) 62 U/L (15-37) H Alanine Aminotransferase (ALT) 45 U/L (14-59) Alkaline Phosphatase 97 U/L (46-116) Total Protein 7.7 g/dL (6.4-8.2) Albumin 3.6 g/dL (3.4-5.0) Albumin/Globulin Ratio 0.9 (1.0-1.7) L Lipase 131 U/L (73-393) Laboratory Tests 07/29/18 12:50 Laboratory Tests 07/29/18 12:50 EKG EKG [] Radiology/Procedures Radiology/Procedures [] Impressions: IMPRESSION: Findings are compatible with cholelithiasis. Gallbladder wall thickening and positive sonographic Crawford's sign suggests cholecystitis. Electronically signed by: Alfa Nathan MD (07/29/2018 1:11 PM) [id number] DICTATED and SIGNED BY: ALFA NATHAN MD DATE: 07/29/18 1311 Course & Med Decision Making Course & Med Decision Making Pertinent Labs and Imaging studies reviewed. (See chart for details) []Epigastric and right upper quadrant think be gastritis needs a biliary imaging. FINAL PLAN WBC ELEV U/S SHOWS CHOLECYSTITIS ABX ORDERED D/W ARMANDO WILL CONSULT ADMIT TO ERIBERTO Barajas Disclaimer Karl Disclaimer This electronic medical record was generated, in whole or in part, using a voice recognition dictation system. Departure Departure Impression: Primary Impression: Cholecystitis Disposition: 09 ADMITTED INPATIENT Admitting Physician: Alfa Rolon Condition: STABLE Referrals: ALFA ROLON MD (PCP) JUHI BOWIE MD Jul 29, 2018 12:41
[2018-07-29] MEDS ORDERED: HYDROcodone/APAP 5/325MG 1 TAB TABLET PO ONE (12:45)
[2018-07-29] MEDS ORDERED: LIDO:MAALOX 1:1 20 ML SINGLE DOSE. SWSW ONE (12:45)
[2018-07-29] MEDS ORDERED: ONDANSETRON ODT 4 MG TAB.RAPDIS. PO ONE (12:45)
[2018-07-29 12:50] LABS: BILIRUBIN,URINE NEGATIVE (NEG); CLARITY,URINE CLEAR; COLOR,URINE YELLOW; NITRITE,URINE NEGATIVE (NEG); PH,URINE 6.5; PROTEIN,URINE NEGATIVE (NEG-TRACE); UROBILINOGEN,URINE 0.2 mg/dL (0.2 mg/dL)
[2018-07-29 13:00] LABS: BACTERIA,URINE FEW /HPF (0-FEW); RBC,URINE 0 /HPF (0-2); SQUAMOUS EPITHELIAL CELL,UR MANY /LPF; WBC,URINE OCC /HPF (0-4)
[2018-07-29 13:08] LABS: BASO % 0 % (0-3); EOS % 0 % (0-3); HEMATOCRIT 39.3 % (36.0-47.0); HEMOGLOBIN 12.6 g/dL (12.0-15.5); LYMPH # 0.9 x10^3/uL (1.0-4.8); LYMPH % 7 % (24-48); MEAN CORPUSCULAR HEMOGLOBIN 28 pg (25-35); MEAN CORPUSCULAR HGB CONC 32 g/dL (31-37); MEAN CORPUSCULAR VOLUME 88 fL (79-100); MONO # 0.6 x10^3/uL (0.0-1.1); MONO % 4 % (0-9); NEUT # 11.5 x10^3uL (1.8-7.7); NEUT % 89 % (31-73); PLATELET COUNT 281 x10^3/uL (140-400); RED BLOOD COUNT 4.48 x10^6/uL (3.50-5.40); RED CELL DISTRIBUTION WIDTH 13.2 % (11.5-14.5); WHITE BLOOD COUNT 12.9 x10^3/uL (4.0-11.0)
[2018-07-29 13:11] LABS: CALCIUM 8.8 mg/dL (8.5-10.1); CREATININE 0.8 mg/dL (0.6-1.0); GFR 105.8; POTASSIUM 3.9 mmol/L (3.5-5.1)
--- NOTE | 2018-07-29 13:13 | RAD ---
Limited abdominal ultrasound History: RUQ PAIN AND NAUSEA Findings: Pancreas appears unremarkable. Inferior vena cava is visualized. Echogenic shadowing structures are identified within the gallbladder, most compatible with multiple small gallstones. Borderline gallbladder wall thickening at 3.6 mm. Positive sonographic Crawford's sign. No significant biliary ductal dilatation. Right kidney measures 10.0 cm without hydronephrosis. Liver appears unremarkable. IMPRESSION: Findings are compatible with cholelithiasis. Gallbladder wall thickening and positive sonographic Crawford's sign suggests cholecystitis. Electronically signed by: Alfa Nathan MD (07/29/2018 1:11 PM) [facility]
[2018-07-29 13:17] LABS: ALBUMIN 3.6 g/dL (3.4-5.0); ALBUMIN/GLOBULIN RATIO 0.9 (1.0-1.7); TOTAL BILIRUBIN 0.6 mg/dL (0.2-1.0); TOTAL PROTEIN 7.7 g/dL (6.4-8.2)
[2018-07-29] MEDS ORDERED: fentaNYL PF VIAL 100 MCG/2 ML VIAL IV ONE (13:45)
[2018-07-29] MEDS ORDERED: IV NORMAL SALINE 1000ML BAG 1,000 ML IV ONE (13:45)
[2018-07-29] MEDS ORDERED: CIPROFLOXACIN 400MG PREMIX 200 ML IV ONE (13:45)
[2018-07-29] MEDS ORDERED: ONDANSETRON PF 4 MG/2 ML VIAL. IV ONE (13:45)
[2018-07-29] MEDS ORDERED: ONDANSETRON PF 4 MG/2 ML VIAL. IV PRN (14:00)
[2018-07-29] MEDS ORDERED: MORPHINE SULFATE 4 MG/ML VIAL. IV PRN (14:00)
[2018-07-29 15:35] VITALS: BP 97/73
[2018-07-29] MEDS: IV NORMAL SALINE 1000ML BAG 1,000 ML IV SCH ×2 (16:26→23:43)
[2018-07-29 16:39] LABS: % LYMPHS 10 % (24-48); % MONOS 7 % (0-10); % SEGS 83 % (35-66); OVALOCYTES OCC; PLT ESTIMATE ADEQUATE (ADEQUATE); POLYCHROMASIA SLIGHT; SCHISTOCYTES OCC
[2018-07-29 19:30] VITALS: BP 120/74
[2018-07-29 22:46] VITALS: BP 121/68
[2018-07-30] VITALS (11 sets, daily range): BP systolic 107–122; BP diastolic 59–74
[2018-07-30] MEDS ORDERED: SURGICEL HEMOSTAT 4X8 EACH. ONE (07:13)
[2018-07-30] MEDS ORDERED: BUPIVACAINE-EPI 0.25%-1:200000 MPF 30 ML VIAL. ONE (07:14)
--- NOTE | 2018-07-30 08:11 | PDOC2 ---
CONSULT Date of Consult Date of Consult DATE: 07/30/18 TIME: 08:09 Reason for Consult Reason for Consult: Abd pain Referring Physician Referring Physician: Gonzales Identification/Chief Complaint Chief Complaint Abd pain Source Source: Patient History of Present Illness Reason for Visit: 27 yo female with RUQ abdominal pain with nausea worse after eating. U/S showing gallstones with thickened gallbladder wall and Crawford's sign Past Medical History Cardiovascular: No pertinent hx Pulmonary: No pertinent hx GI: No pertinent hx Heme/Onc: No pertinent hx Hepatobiliary: No pertinent hx Psych: No pertinent hx Rheumatologic: No pertinent hx Infectious disease: No pertinent hx ENT: No pertinent hx Renal/: No pertinent hx Endocrine: No pertinent hx Dermatology: No pertinent hx Past Surgical History Past Surgical History: No pertinent history Family History Family History: No Significant Current Problem List Problem List Problems Medical Problems: (1) Cholecystitis Status: Acute Current Medications Current Medications Current Medications Multi-Ingredient Mouthwash/Gargle (Gi Cocktail) 20 ml 1X ONCE SWSW ; Start at 12:45; Stop 07/29/18 at 13:33; Status DC Acetaminophen/ Hydrocodone Bitart (Lortab 5/325) 1 tab 1X ONCE PO ; Start 07/29 at 12:45; Stop 07/29/18 at 13:33; Status DC Ondansetron HCl (Zofran Odt) 4 mg 1X ONCE PO ; Start 07/29/18 at 12:45; Stop at 13:33; Status DC Fentanyl Citrate (Fentanyl 2ml Vial) 50 mcg 1X ONCE IV ; Start 07/29/18 at 13: 45; Stop 07/29/18 at 13:46; Status DC Ciprofloxacin/ Dextrose 200 ml @ 200 mls/hr 1X ONCE IV Last administered on at 13:50; Start 07/29/18 at 13:45; Stop 07/29/18 at 14:44; Status DC Metronidazole 100 ml @ 100 mls/hr 1X ONCE IV Last administered on 07/29/18at 15:01; Start 07/29/18 at 13:45; Stop 07/29/18 at 14:44; Status DC Ondansetron HCl (Zofran) 4 mg 1X ONCE IV Last administered on 07/29/18at 13:50 ; Start 07/29/18 at 13:45; Stop 07/29/18 at 13:46; Status DC Sodium Chloride 1,000 ml @ 1,000 mls/hr 1X ONCE IV ; Start 07/29/18 at 13:45; Stop 07/29/18 at 14:44; Status DC Ondansetron HCl (Zofran) 4 mg PRN Q8HRS PRN IV NAUSEA/VOMITING; Start 07/29/18 at 14:00; Stop 07/30/18 at 13:59 Morphine Sulfate (Morphine Sulfate) 4 mg PRN Q2HR PRN IV PAIN; Start 07/29/18 at 14:00; Stop 07/30/18 at 13:59 Sodium Chloride 1,000 ml @ 125 mls/hr Q8H IV Last administered on 07/29/18at 23 :43; Start 07/29/18 at 13:46; Stop 07/30/18 at 13:45 Active Scripts Active Amlodipine Besylate 5 Mg Tablet 5 Mg PO DAILY 30 Days Allergies Allergies: Coded Allergies: amoxicillin (Verified Allergy, Intermediate, Rash, 08/17/17) ROS Gastrointestinal: Yes Nausea, Yes Abdominal Pain Physical Exam General: Alert, Oriented X3, Cooperative, mild distress HEENT: Atraumatic, PERRLA, EOMI Lungs: Clear to auscultation, Normal air movement Heart: Regular rate, No murmurs Abdomen: Normal bowel sounds, Soft, Other (TTP RUQ) Extremities: No edema Skin: No significant lesion Neuro: Normal speech Psych/Mental Status: Mental status NL Vitals VITALS Vital Signs Date Time Temp Pulse Resp B/P (MAP) Pulse Ox O2 Delivery O2 Flow Rate FiO2 07/30/18 03:16 98.2 72 18 108/59 (75) 95 Room Air 98.2 Labs Labs Laboratory Tests Test 07/29/18 12:00 07/29/18 12:07 07/29/18 12:50 Urine Collection Type Unknown Urine Color Yellow Urine Clarity Clear Urine pH 6.5 Urine Specific Pope 1.020 Urine Protein Negative mg/dL (NEG-TRACE) Urine Glucose (UA) Negative mg/dL (NEG) Urine Ketones (Stick) Negative mg/dL (NEG) Urine Blood Negative (NEG) Urine Nitrite Negative (NEG) Urine Bilirubin Negative (NEG) Urine Urobilinogen Dipstick 0.2 mg/dL (0.2 mg/dL) Urine Leukocyte Esterase Trace (NEG) Urine RBC 0 /HPF (0-2) Urine WBC Occ /HPF (0-4) Urine Squamous Epithelial Cells Many /LPF Urine Bacteria Few /HPF (0-FEW) Bedside Urine HCG, Qualitative Hcg negative (Negative) White Blood Count 12.9 x10^3/uL (4.0-11.0) Red Blood Count 4.48 x10^6/uL (3.50-5.40) Hemoglobin 12.6 g/dL (12.0-15.5) Hematocrit 39.3 % (36.0-47.0) Mean Corpuscular Volume 88 fL (79-100) Mean Corpuscular Hemoglobin 28 pg (25-35) Mean Corpuscular Hemoglobin Concent 32 g/dL (31-37) Red Cell Distribution Width 13.2 % (11.5-14.5) Platelet Count 281 x10^3/uL (140-400) Neutrophils (%) (Auto) 89 % (31-73) Lymphocytes (%) (Auto) 7 % (24-48) Monocytes (%) (Auto) 4 % (0-9) Eosinophils (%) (Auto) 0 % (0-3) Basophils (%) (Auto) 0 % (0-3) Neutrophils # (Auto) 11.5 x10^3uL (1.8-7.7) Lymphocytes # (Auto) 0.9 x10^3/uL (1.0-4.8) Monocytes # (Auto) 0.6 x10^3/uL (0.0-1.1) Eosinophils # (Auto) 0.0 x10^3/uL (0.0-0.7) Basophils # (Auto) 0.0 x10^3/uL (0.0-0.2) Segmented Neutrophils % 83 % (35-66) Lymphocytes % 10 % (24-48) Monocytes % 7 % (0-10) Platelet Estimate Adequate (ADEQUATE) Large Platelets Occ Polychromasia Slight Ovalocytes Occ Schistocytes Occ Sodium Level 141 mmol/L (136-145) Potassium Level 3.9 mmol/L (3.5-5.1) Chloride Level 104 mmol/L (98-107) Carbon Dioxide Level 25 mmol/L (21-32) Anion Gap 12 (6-14) Blood Urea Nitrogen 8 mg/dL (7-20) Creatinine 0.8 mg/dL (0.6-1.0) Estimated GFR (Cockcroft-Gault) 105.8 BUN/Creatinine Ratio 10 (6-20) Glucose Level 87 mg/dL (70-99) Calcium Level 8.8 mg/dL (8.5-10.1) Total Bilirubin 0.6 mg/dL (0.2-1.0) Aspartate Amino Transf (AST/SGOT) 62 U/L (15-37) Alanine Aminotransferase (ALT/SGPT) 45 U/L (14-59) Alkaline Phosphatase 97 U/L (46-116) Total Protein 7.7 g/dL (6.4-8.2) Albumin 3.6 g/dL (3.4-5.0) Albumin/Globulin Ratio 0.9 (1.0-1.7) Lipase 131 U/L (73-393) Laboratory Tests Test 07/29/18 12:00 07/29/18 12:07 07/29/18 12:50 Urine Collection Type Unknown Urine Color Yellow Urine Clarity Clear Urine pH 6.5 Urine Specific Pope 1.020 Urine Protein Negative mg/dL (NEG-TRACE) Urine Glucose (UA) Negative mg/dL (NEG) Urine Ketones (Stick) Negative mg/dL (NEG) Urine Blood Negative (NEG) Urine Nitrite Negative (NEG) Urine Bilirubin Negative (NEG) Urine Urobilinogen Dipstick 0.2 mg/dL (0.2 mg/dL) Urine Leukocyte Esterase Trace (NEG) Urine RBC 0 /HPF (0-2) Urine WBC Occ /HPF (0-4) Urine Squamous Epithelial Cells Many /LPF Urine Bacteria Few /HPF (0-FEW) Bedside Urine HCG, Qualitative Hcg negative (Negative) White Blood Count 12.9 x10^3/uL (4.0-11.0) Red Blood Count 4.48 x10^6/uL (3.50-5.40) Hemoglobin 12.6 g/dL (12.0-15.5) Hematocrit 39.3 % (36.0-47.0) Mean Corpuscular Volume 88 fL (79-100) Mean Corpuscular Hemoglobin 28 pg (25-35) Mean Corpuscular Hemoglobin Concent 32 g/dL (31-37) Red Cell Distribution Width 13.2 % (11.5-14.5) Platelet Count 281 x10^3/uL (140-400) Neutrophils (%) (Auto) 89 % (31-73) Lymphocytes (%) (Auto) 7 % (24-48) Monocytes (%) (Auto) 4 % (0-9) Eosinophils (%) (Auto) 0 % (0-3) Basophils (%) (Auto) 0 % (0-3) Neutrophils # (Auto) 11.5 x10^3uL (1.8-7.7) Lymphocytes # (Auto) 0.9 x10^3/uL (1.0-4.8) Monocytes # (Auto) 0.6 x10^3/uL (0.0-1.1) Eosinophils # (Auto) 0.0 x10^3/uL (0.0-0.7) Basophils # (Auto) 0.0 x10^3/uL (0.0-0.2) Segmented Neutrophils % 83 % (35-66) Lymphocytes % 10 % (24-48) Monocytes % 7 % (0-10) Platelet Estimate Adequate (ADEQUATE) Large Platelets Occ Polychromasia Slight Ovalocytes Occ Schistocytes Occ Sodium Level 141 mmol/L (136-145) Potassium Level 3.9 mmol/L (3.5-5.1) Chloride Level 104 mmol/L (98-107) Carbon Dioxide Level 25 mmol/L (21-32) Anion Gap 12 (6-14) Blood Urea Nitrogen 8 mg/dL (7-20) Creatinine 0.8 mg/dL (0.6-1.0) Estimated GFR (Cockcroft-Gault) 105.8 BUN/Creatinine Ratio 10 (6-20) Glucose Level 87 mg/dL (70-99) Calcium Level 8.8 mg/dL (8.5-10.1) Total Bilirubin 0.6 mg/dL (0.2-1.0) Aspartate Amino Transf (AST/SGOT) 62 U/L (15-37) Alanine Aminotransferase (ALT/SGPT) 45 U/L (14-59) Alkaline Phosphatase 97 U/L (46-116) Total Protein 7.7 g/dL (6.4-8.2) Albumin 3.6 g/dL (3.4-5.0) Albumin/Globulin Ratio 0.9 (1.0-1.7) Lipase 131 U/L (73-393) Images Images as in HPI Assessment/Plan Assessment/Plan Acute cholecystitis plan L/S Cholecystectomy NICK ARMANDO MD Jul 30, 2018 08:11
[2018-07-30] MEDS ORDERED: PROPOFOL 20 ML IV ONE (08:24)
[2018-07-30] MEDS ORDERED: LIDOCAINE 2% PF 5 ML VIAL. ONE (08:24)
[2018-07-30] MEDS ORDERED: fentaNYL PF VIAL 100 MCG/2 ML VIAL ONE ×2 (08:24→10:11)
[2018-07-30] MEDS ORDERED: SUCCINYLCHOLINE 200 MG/10 ML VIAL. ONE (08:24)
[2018-07-30] MEDS ORDERED: ROCURONIUM 50 MG/5 ML VIAL. ONE (08:24)
[2018-07-30] MEDS ORDERED: ONDANSETRON PF 4 MG/2 ML VIAL. ONE (08:25)
[2018-07-30] MEDS ORDERED: DEXAMETHASONE SOD PHOS 20 MG/5 ML VIAL. ONE (08:25)
[2018-07-30] MEDS ORDERED: NEOSTIGMINE 10 MG/10 ML VIAL. ONE (08:57)
[2018-07-30] MEDS ORDERED: DESFLURANE 31 TO 60 MINUTES IH ONE (08:57)
[2018-07-30] MEDS ORDERED: GLYCOPYRROLATE 1 MG/5 ML VIAL. ONE (08:58)
[2018-07-30] MEDS ORDERED: FAMOTIDINE 20 MG/2 ML VIAL ONE (09:32)
--- NOTE | 2018-07-30 09:40 | PDOC4 ---
Operative Note Operative Note Date: 07/30/2018 Preoperative diagnosis: Acute and chronic cholecystitis cholelithiasis Postoperative diagnosis: Same Procedure: Laparoscopic cholecystectomy Surgeon: Alphonso Specimen: Gallbladder Dictation: Patient is a 27-year-old female is admitted to the hospital with right upper quadrant abdominal pain and postprandial nausea ultrasound showed gallstones with gallbladder wall thickening and a positive Crawford sign. Procedure of laparoscopic cholecystectomy was explained to the patient in detail all risks benefits were also discussed including bleeding infection injury to intra-abdominal contents possibly necessitating further operations alternatives to this procedure also discussed with the patient who seemed to understand and gave both verbal and written consent to have the procedure performed. Patient was taken to the operating room placed in supine position general anesthesia was initiated once patient was sleep and intubated her abdomen was prepped and draped usual sterile fashion using ChloraPrep. An area just below the umbilicus was injected with quarter percent Marcaine with epinephrine incision was made 11 blade scalpel and a Veress needle was placed within the abdomen creating pneumoperitoneum once this was complete 11 mm port was placed and a 5 mm camera was placed within the abdomen which was visualized and inspected no other abnormalities were noted. A 5 mm port was placed in the epigastrium a 5 mm port was placed in the right mid abdomen and one in the right lateral abdomen all under direct visualization of the dome of the gallbladder was grasped and retracted cephalad and the infundibulum of the gallbladder was grasped and retracted laterally exposing the triangle adherent tissues of the triangle were taken down with blunt and sharp dissection exposing the cystic duct and cystic artery both were doubly clipped and transected the gallbladder was taken off the liver with hook electrocautery placed in the Endo Catch bag and removed from the umbilicus right upper quadrant was irrigated and suctioned dry hemostasis was deemed to be appropriate and the pneumoperitoneum was reduced all ports removed fascial defect at the umbilicus was closed with a [id number] 0 Vicryl suture and the skin was reapproximated with all port sites with 4-0 subcuticular Monocryl Mastisol Steri-Strips and island dressings were applied. The patient was awakened and extubated in the operating room taken to recovery in stable condition all sponge instrument needle counts listed as correct, estimated blood loss 5 mL NICK ARMANDO MD Jul 30, 2018 09:40
--- NOTE | 2018-07-30 09:41 | DISCH ---
DISCHARGE INSTRUCTIONS Condition on Discharge Condition on Discharge: Stable Activity After Discharge Activity Instructions for Disc: No restrictions Lifting Instructions after Dis: No heavy lifting Driving Instructions after Dis: Do not drive today Weight Bearing Status after Di: No restrictions Diet after Discharge Diet after Discharge: Low Fat Diet Texture: Regular Follow-Up Follow up with: Dr. Armando in 2 weeks Treatment/Equipment after DC Adaptive Equipment Issued: None NICK ARMANDO MD Jul 30, 2018 09:40
[2018-07-30] MEDS ORDERED: IV RINGERS,LACTATED 1000ML 1,000 ML IV SCH (09:43)
[2018-07-30] MEDS ORDERED: PROCHLORPERAZINE 10 MG/2 ML VIAL. IV PRN (09:45)
[2018-07-30] MEDS ORDERED: PROCHLORPERAZINE 10 MG/2 ML VIAL. ONE (09:45)
[2018-07-30] MEDS ORDERED: MORPHINE SULFATE 2 MG/ML VIAL. IV PRN (09:45)
[2018-07-30] MEDS ORDERED: HYDROmorphone 2 MG/ML VIAL IV PRN (09:45)
[2018-07-30] MEDS ORDERED: fentaNYL PF VIAL 100 MCG/2 ML VIAL IV PRN (09:45)
[2018-07-30] MEDS ORDERED: oxyCODONE/APAP 10/325 1 TAB TABLET PO PRN (09:45)
[2018-07-30] MEDS ORDERED: ONDANSETRON PF 4 MG/2 ML VIAL. IV PRN (09:45)
[2018-07-30] MEDS ORDERED: oxyCODONE/APAP 5/325 1 TAB TABLET PO PRN (09:45)
[2018-07-30] MEDS: fentaNYL PF VIAL 100 MCG/2 ML VIAL IV PRN ×3 (09:51→10:15)
[2018-07-30] MEDS ORDERED: HYDR-3165 PO ×2 (10:38→10:41)
--- NOTE | 2018-07-30 11:15 | HP ---
ADMIT DATE: 07/30/2018 ADMISSION HISTORY AND PHYSICAL COMBINED DISCHARGE SUMMARY CHIEF COMPLAINT: Abdominal pain. ADMITTING DIAGNOSIS: Acute cholecystitis. DISMISSAL DIAGNOSIS: Acute cholecystitis. SECONDARY DIAGNOSIS: Status post laparoscopic cholecystectomy. HISTORY OF PRESENT ILLNESS AND HOSPITAL COURSE: This patient is a 27-year-old -[place] female who had a 24-hour history of increasing abdominal pain in the right upper quadrant. She came to the Emergency Room and was found to have evidence of acute cholecystitis on sonogram as well as laboratory evaluation. At this point, she was admitted for IV fluids, IV antibiotics and surgical consultation. She underwent a laparoscopic cholecystectomy without complication and had uncomplicated postoperative course. The patient stabilized and plans for discharge were made, discharging with previous medications of amlodipine 5 mg daily and hydrocodone 1-2 q. 6 hours p.r.n., 7.5/325. PAST MEDICAL HISTORY: Significant for hypertension, on amlodipine. PAST SURGICAL HISTORY: Significant for left ankle fracture. GYNECOLOGIC HISTORY: She is a G1, P1, LC1 The patient has control using condoms and had negative test prior to surgery. FAMILY HISTORY: Significant for mother without medical issues, father with asthma and history of pericarditis, brother and sister alive and well, maternal grandfather with Alzheimer's and hypertension, maternal grandmother with asthma and breast cancer and maternal grandfather with lung cancer. SOCIAL HISTORY: The patient has never smoked. She does not use alcohol. She is and lives with the spouse and child. She works as a [employer]. ALLERGIES: THE PATIENT HAS ALLERGIES TO AMOXICILLIN, CAUSING RASH. REVIEW OF SYSTEMS: The patient was doing well until 24-48 hours prior to admission, when she had increasing abdominal pain. She had no fever or chills, no diarrhea, no cough and no congestion. PHYSICAL EXAMINATION: GENERAL: This is a well-nourished, well-developed -[place] female, in moderate distress in the ER, in no apparent distress on my exam post-surgery. HEENT: Benign. NECK: Supple. CARDIAC EXAMINATION: Regular rate and rhythm. LUNGS: Clear. ABDOMEN: Soft, nontender with well-healing surgical scars. EXTREMITIES: With 2+ pulses, without significant edema. NEUROLOGICAL EXAMINATION: Intact. ASSESSMENT: Cholecystitis. PLAN: To proceed with postoperative care after laparoscopic cholecystectomy and discharge to home when stable. ETHAN WEI MD DR: Elva JOB#: [id number] / [id number]
[2018-07-30] MEDS ORDERED: KETOROLAC 15 MG/ML VIAL. IV SCH (12:00)
[2018-07-30] MEDS ORDERED: amLODIPine BESYLATE 5 MG TABLET PO SCH (12:00)
[2018-07-30] MEDS: IV NORMAL SALINE 1000ML BAG 1,000 ML IV SCH (12:20)
--- NOTE | 2018-07-30 15:25 | NUR ---
Patient discharged home, self care. Patient understands discharge instructions and new prescription. Patient given follow up information and post surgery instructions. Patient stable, reports no pain, and has successfully tolerated lunch. IV line discontinued. All belongings with patient. Patient accompanied by Katherine KIMBLE and to car.
== END 2018-07-30 15:38 | disposition home or self-care (01) | DRG 419 ==
LOC: ER 11:55 → 4 NORTH 13:30
PROVIDERS: ADMIT Family Medicine; ATTEND Family Medicine
PROC: 0FT44ZZ Resection of Gallbladder, Percutaneous Endoscopic Approach (ICD-10-PCS; principal; 2018-07-30 09:00)
DX: K80.12 Calculus of gallbladder with acute and chronic cholecystitis without obstruction (principal); I10 Essential (primary) hypertension; G43.909 Migraine, unspecified, not intractable, without status migrainosus; Z87.81 Personal history of (healed) traumatic fracture; Z79.899 Other long term (current) drug therapy; Z88.8 Allergy status to other drugs, medicaments and biological substances; Z82.5 Family history of asthma and other chronic lower respiratory diseases; Z80.3 Family history of malignant neoplasm of breast; Z80.1 Family history of malignant neoplasm of trachea, bronchus and lung; Z81.8 Family history of other mental and behavioral disorders; Z88.0 Allergy status to penicillin
CPT/HCPCS: 36415; 76705; 80053; 81001; 81025; 83690; 85007; 85025; 87086; 87186; 88304; 96365; 96375; A7015; J0330; J0696; J0744; J0780; J1100; J1885; J2001; J2405; J2704; J2710; J3010; J3490; J7030; J7120; 99284-25